=== PATIENT | male | born 1970 | race Caucasian/White ===

== ENCOUNTER 2017-04-23 20:18 | Emergency (ER) | payer MEDICAID ==
[~2017-04-23] VITALS: Ht 182.9 cm; Wt 83.5 kg
[2017-04-23 20:36] VITALS: BP 164/103
--- NOTE | 2017-04-23 20:47 | NUR ---
AMBULATED TO ER BED 11
[2017-04-23 20:58] LABS: BASOPHILS # (AUTO) 0.4 K/uL (0.00-0.22); EOSINOPHILS # (AUTO) 0.2 K/uL (0-0.4); HEMOGLOBIN 15.8 g/dL (12.0-18.0); LYMPHOCYTES # (AUTO) 2.8 K/uL (2.0-11.5); MEAN CORPUSCULAR HEMOGLOBIN 32 pg (27-31); MEAN CORPUSCULAR HGB CONC 34 g/dL (33-37); MEAN CORPUSCULAR VOLUME 92 fL (80-94); MONOCYTES # (AUTO) 0.9 K/uL (0.8-1.0); NEUTROPHILS # (AUTO) 6.6 K/uL (1.8-7.7); PLATELET COUNT (AUTO) 283 K/uL (140-450); WHITE BLOOD COUNT (AUTO) 10.9 K/uL (4.8-10.8)
--- NOTE | 2017-04-23 20:59 | NUR ---
46Y/M PT. PRESENTS TO ED WITH C/O HIGH BP. FAMILY STATES PT. HAVING ANXIETY, WHEN CHECK BP, ELEVATED, ASYMPTOMATIC. DENIES MEDICAL HX. AAO X4, AMBULATORY WITH STEADY GAIT, GCS 15. RESPIRATIONS ROOM AIR, EVEN AND UNLABORED. NO C/O PAIN AT THIS TIME. BP ELEVATED. ER MD MADE AWARE OF PT. STATUS.
[2017-04-23 21:02] LABS: APPEARANCE,URINE CLEAR (CLEAR); BILIRUBIN,URINE NEGATIVE (NEGATIVE); BLOOD, URINE NEGATIVE (NEGATIVE); COLOR,URINE YELLOW (YELLOW); LEUKOCYTE ESTERASE ,URINE NEGATIVE (NEGATIVE); NITRITE, URINE NEGATIVE (NEGATIVE); UGLUCOSE NEGATIVE (NEGATIVE)
[2017-04-23 21:10] LABS: CARBON DIOXIDE 26.7 mmol/L (21-32); CREATININE 0.9 mg/dL (0.7-1.3); POTASSIUM 3.7 mmol/L (3.5-5.1)
[2017-04-23 21:17] LABS: TOTAL BILIRUBIN 0.8 mg/dL (0.0-1.0)
--- NOTE | 2017-04-23 22:03 | NUR ---
Patient being evaluated by at bedside.
[2017-04-23] MEDS ORDERED: hydrALAZINE 20 MG/ML VIAL IM ONE (22:25)
--- NOTE | 2017-04-23 23:25 | NUR ---
Patient discharged with v/s stable. Written and verbal after care instructions given and explained. Patient alert, oriented and verbalized understanding of instructions. Ambulatory with steady gait. All questions addressed prior to discharge. ID band removed. Patient advised to follow up with PMD. Rx of LISINOPRIL 5 MG given. Patient educated on indication of medication including possible reaction and side effects. Opportunity to ask questions provided and answered.
[2017-04-24 00:14] VITALS: BP 147/87
== END 2017-04-23 23:25 | disposition home or self-care (01) ==
LOC: MED 20:18
DX: I10 Essential (primary) hypertension (principal)
CPT/HCPCS: 36415; 80053; 81003; 85025; 96372; 99284; J0360